=== PATIENT | male | born 1990 | race Caucasian/White ===

== ENCOUNTER 2025-04-20 16:38 | Emergency (ER) | payer SELFPAY ==
--- NOTE | ~2025-04-20 | XR_ITS ---
CLINICAL HISTORY: pain 2 view chest x-ray Comparison: None provided Findings: Trace bilateral pleural fluid. Within the range of physiologic. No consolidation or or pneumothorax. Heart size is normal. No acute fracture. IMPRESSION: 1. No acute findings. This document has been electronically signed by: Trixie Almeida MD on 04/20/2025 21:35:46
--- NOTE | 2025-04-20 16:41 | ECG_ITS ---
Test Reason : CP Blood Pressure : */* mmHG Vent. Rate : 71 BPM Atrial Rate : 71 BPM P-R Int : 138 ms QRS Dur : 92 ms QT Int : 352 ms P-R-T Axes : 73 50 58 degrees QTcB Int : 382 ms Normal sinus rhythm with sinus arrhythmia Normal ECG No previous ECGs available Referred By: Generic ED Physician Electronically Signed By: TRUE RIVAS MD
[2025-04-20 16:48] VITALS: BP 127/80; PULSE 97; RESP 18; TEMP 37; O2SAT 97; BMI 18.8
--- NOTE | 2025-04-20 16:50 | ED.GENADULT ---
HPI - General Adult General Chief complaint: General Medical Stated complaint: CP; difficulty breathing, Throat pain Time Seen by Provider: 04/20/25 20:14 Source: patient Limitations: no limitations History of Present Illness ED Provider: Laura Dee PA-C HPI narrative: 35-year-old male presents with epigastric discomfort x1 week. Patient also complains of ongoing tooth pain of unclear duration. Patient complains of intermittent dental pain of 1 of the molars on the lower right side. Patient states he fracture of the tooth quite some time ago, he will have periodic pain. Patient has a an appointment with the his dentist in 2 days, he started to develop discomfort within the past week. In regard to the upper abdominal discomfort, pain over epigastric region with radiation to central chest and throat, patient states when he has episodes of eructation, he has a ?sour taste in his mouth?. Denies recent cough or cold symptoms no fevers. No nausea vomiting, or diarrhea. Related Data Previous Rx's ?Medication ?Instructions ?Recorded amoxicillin 500 mg capsule 500 mg PO Q12H #19 caps 04/20/25 sucralfate 100 mg/mL oral 10 ml PO QID PRN indigestion #400 04/20/25 suspension (Carafate) mL Allergies Allergy/AdvReac Type Severity Reaction Status Date / Time No Known Allergies Allergy Verified 04/20/25 16:50 Review of Systems Review of Systems: Yes all other systems are reviewed and are negative Constitutional: Constitutional: Denies fatigue and Denies fever(s) Cardiovascular: Cardiovascular: Reports chest pain and Denies dyspnea Respiratory: Respiratory: Denies dyspnea Gastrointestinal: Gastrointestinal: Reports abdominal pain, Denies constipation, Reports dyspepsia, Reports heartburn, Denies diarrhea, Denies nausea and Denies vomiting Endocrine: Endocrine: Denies fatigue PMFSH Past Medical History Attestation statement: The following information was validated with the patient. Social History Social History Advance Directives: No Advance Directives Information Provided: No Do you have a plan to hurt others: No Plan Physical Exam ED Vital Signs: Vital Signs - 24 hr 04/20/25 16:48 Temperature 98.6 F Pulse Rate 97 Respiratory Rate 18 Blood Pressure 127/80 Pulse Oximetry 97 Oxygen Delivery Method Room Air BMI result Body Mass Index 18.8 Const Other: Alert, well-appearing Orientation/consciousness: patient oriented x3 HENMT Other: The wisdom tooth on the right lower side is broken, no associated erythema over the gum tooth margin, no purulence from the site, no trismus no drooling no swelling inferior to the jawline no sublingual fluctuance Resp Effort & Inspection: normal respiratory effort Cardio Other: Normal peripheral perfusion GI Other: Soft nontender no guarding no distention Skin Other: Warm dry no rash Neuro General: patient oriented x3, gait normal, no focal motor deficits and CN's II-XI intact bilaterally Psych Other: Cooperative Course Course Course Narrative: Rapid medical examination performed in triage by Cris Stahl PA-C. Patient is a 35 year old assigned male at presenting to the emergency department with abdominal pain and abuse of acetaminophen. Detailed physical exam and review of systems are deferred to the speech and language clinician. Labs ordered. Patient placed back in the waiting room pending room availability and results. Medications Administered Discontinued Medications Generic Name Dose Route Start Last Admin Trade Name Alanq PRN Reason Stop Dose Admin Acetaminophen 975 mg 04/20/25 20:53 04/20/25 21:13 Acetaminophen 325 Mg Tablet PO 04/20/25 20:54 975 mg ONCE ONE Administration Ketorolac Tromethamine 15 mg 04/20/25 20:53 04/20/25 21:13 Ketorolac Tromethamine 15 Mg/Ml Vial IM 04/20/25 20:54 15 mg ONCE ONE Administration Sucralfate 1 gm 04/20/25 20:53 04/20/25 21:13 Sucralfate Oral Suspension 1 Gm/10 Ml Oral.Susp PO 04/20/25 20:54 1 gm ONCE ONE Administration Medical Decision Making Medical Decision Making [facility] Narrative: 35-year-old male presents with epigastric discomfort x1 week. Patient also complains of ongoing tooth pain of unclear duration. Patient complains of intermittent dental pain of 1 of the molars on the lower right side. Patient states he fracture of the tooth quite some time ago, he will have periodic pain. Patient has a an appointment with the his dentist in 2 days, he started to develop discomfort within the past week. In regard to the upper abdominal discomfort, pain over epigastric region with radiation to central chest and throat, patient states when he has episodes of eructation, he has a ?sour taste in his mouth?. Denies recent cough or cold symptoms no fevers. No nausea vomiting, or diarrhea. Problem: Ongoing dental fracture History: Per patient I have considered the following differential diagnoses: Biliary colic, cholecystitis, gastritis, perforated peptic ulcer, pancreatitis, poorly controlled GERD, dental infection , ACS Plan: In regard to the dental infection, he likely is developing a deeper infection, we will place him on amoxicillin, it is ideal that he has an appointment with the his dentist in 2 days. No evidence of Marlon angina on exam. No indication for imaging at this time. In regard to his chest and upper abdominal discomfort, his symptoms are likely secondary to poorly controlled acid reflux. There was no guarding on exam, absence of peritonitic signs to suggest perforated peptic ulcer, the patient is also not vomiting coffee-ground emesis. Given distribution of discomfort I also considered underlying biliary versus pancreatic etiology as cause for symptoms, however his labs were overall unremarkable including LFTs and lipase. We will be sending with Carafate and home instructions. Atypical presentation for ACS was considered, however the patient has no no risk factors for coronary artery disease, his heart score is 0. I have independently reviewed the following tests: Labs: No leukocytosis, not anemic, no electrolyte abnormality, troponin negative EKG: Normal sinus rhythm, rate of 71, no ischemic changes, sinus arrhythmia noted, QTC 382 Chest x-ray:Findings: Trace bilateral pleural fluid. Within the range of physiologic. No consolidation or or pneumothorax. Heart size is normal. No acute fracture. IMPRESSION: 1. No acute findings. Differential Diagnosis Differential Diagnoses: The differential diagnosis associated with the presentation includes See medical decision-making Admission/Observation Consideration of admission/observation: Escalation of care including admission/observation considered Not applicable Lab Data MDM Lab Attestation statement: I reviewed the patient's lab results. 04/20/25 16:55 04/20/25 16:55 Labs: Lab Results 04/20/25 Range/Units 16:55 WBC 11.4 H (4.8-10.8) X10*3/uL RBC 5.89 H (4.60-5.80) X10*6/uL Hgb 15.3 (14.0-18.0) g/dl Hct 47.2 (42.0-52.0) % MCV 80.1 (80.0-98.0) fL MCH 26.0 L (27.0-33.0) pg MCHC 32.4 (31.0-36.0) g/dl RDW 16.4 H (11.0-16.0) % Plt Count 268 (160-400) X10*3/uL MPV 9.7 (9.4-12.4) fL Immature Gran % (Auto) 0.7 H (0.0-0.4) % Neut % (Auto) 66.3 (45-73) % Lymph % (Auto) 21.5 (20-40) % Bureau % (Auto) 8.2 (2-11) % Eos % (Auto) 2.7 (0-4) % Baso % (Auto) 0.6 (0-2) % Lymph # (Auto) 2.5 (1.2-4.9) X10*3/uL Bureau # (Auto) 0.9 (0.1-1.2) X10*3/uL Eos # (Auto) 0.3 (0.0-0.4) X10*3/uL Baso # (Auto) 0.1 (0.0-0.2) X10*3/uL Abs Immat Gran (auto) 0.08 H (0.00-0.03) X10*3/uL Absolute Neuts (auto) 7.6 (2.0-8.3) x10*3/uL Absolute Nucleated RBC 0.000 (0.0-0.012) X10*3/uL Nucleated RBC % (auto) 0.0 (0.0-0.2) /100WBC Sodium 142 (135-145) mmol/L Potassium 3.9 (3.3-5.1) mmol/L Chloride 106 (96-108) mmol/L Carbon Dioxide 26 (22-29) mmol/L Anion Gap 14 (12-20) BUN 15 (9-16) mg/dL Creatinine 0.90 (0.5-1.4) mg/dL Estim Creat Clear Calc 91.8 Estimated GFR > 60 Random Glucose 100 (60-115) mg/dL Calcium 9.2 (8.4-10.2) mg/dL Total Bilirubin 0.4 (0.0-1.0) mg/dL AST 19 (5-37) U/L ALT 17 (0-40) U/L Alkaline Phosphatase 83 (39-117) U/L Troponin I High Sens < 2.7 (<3.5-35.0) ng/L Total Protein 7.3 (6.5-8.0) g/dL Albumin 4.8 (3.5-5.0) g/dL Acetaminophen < 3 (<30) mcg/mL Independent Interpretation I performed an independent interpretation of an: EKG Radiology Impression Discussion of test interpretation with radiology: I have reviewed the radiologist's reading. Discharge Plan Discharge Clinical Impression: Continuous epigastric pain, Pain, dental, GERD (gastroesophageal reflux disease) Patient Disposition: Home, Self-Care Instructions: Diet for Stomach Ulcers and Gastritis (ED), GERD (Gastroesophageal Reflux Disease) (ED), Toothache (ED), Epigastric Pain (ED) Additional Instructions: All of your screening labs including a cardiac enzymes were normal. The chest x-ray is clear, there were no concerning changes on your EKG. I do believe your upper abdominal discomfort and central chest discomfort is secondary to poorly controlled acid reflux. See home care instructions, I have also included an appropriate diet for you to consume while managing your acute reflux symptoms. Use the Carafate as needed for upper abdominal discomfort. Take the amoxicillin as directed. Some common food triggers to avoid would be anything spicy, acidic, fatty or greasy, anything carbonated, alcohol or caffeine. You should also not eat 3 hours before bed. Eating smaller meals throughout the day can help curb symptoms. Follow up with your primary care provider as needed. Also keep your pending appointment with your dentist. Prescriptions: New amoxicillin 500 mg capsule 500 mg PO Q12H Qty: 19 0RF sucralfate [Carafate] 100 mg/mL suspension 10 ml PO QID PRN (Reason: indigestion) Qty: 400 0RF Rx Instructions: swish in mouth and swallow; use after food/drink Stand Alone Forms: Work/School Release Print Language: Argentine
[2025-04-20 17:00] LABS: MANUAL DIFF FLAG NO
[2025-04-20 17:02] LABS: Hematocrit 47.2 % (42.0-52.0); Hemoglobin 15.3 g/dl (14.0-18.0); Imm Gran Abs Auto 0.08 X10*3/uL (0.00-0.03); Imm Gran Pct Auto 0.7 % (0.0-0.4); Lymphocytes Absolute Auto 2.5 X10*3/uL (1.2-4.9); Mean Corpuscular HGB Conc 32.4 g/dl (31.0-36.0); Mean Corpuscular Hemoglobin 26.0 pg (27.0-33.0); Mean Corpuscular Volume 80.1 fL (80.0-98.0); NRBC Abs Auto 0.000 X10*3/uL (0.0-0.012); NRBC Pct Auto 0.0 /100WBC (0.0-0.2); Platelet Count 268 X10*3/uL (160-400); Red Blood Count 5.89 X10*6/uL (4.60-5.80); White Blood Count 11.4 X10*3/uL (4.8-10.8)
[2025-04-20 17:18] LABS: Acetaminophen LAB < 3 mcg/mL (<30); Alanine Aminotransferase 17 U/L (0-40); Albumin Level 4.8 g/dL (3.5-5.0); Alkaline Phosphatase 83 U/L (39-117); Anion Gap 14 (12-20); Aspartate Amino Transferase 19 U/L (5-37); Blood Urea Nitrogen 15 mg/dL (9-16); Calcium 9.2 mg/dL (8.4-10.2); Carbon Dioxide 26 mmol/L (22-29); Chloride 106 mmol/L (96-108); Creatinine Clr Calc Pharmacy 91.8; Estimated Glomerular Filt Rate > 60; Potassium 3.9 mmol/L (3.3-5.1); Sodium 142 mmol/L (135-145); Total Protein 7.3 g/dL (6.5-8.0)
[2025-04-20 20:56] LABS: Troponin-I High Sensitivity < 2.7 ng/L (<3.5-35.0)
[2025-04-20] MEDS: Sucralfate Oral Suspension 1 GM/10 ML ORAL.SUSP PO (21:13)
[2025-04-20 21:45] VITALS: BP 119/79; PULSE 78; RESP 16; TEMP 36.7; O2SAT 98
[2025-04-20 21:46] VITALS: BP 119/79; PULSE 78; RESP 16; TEMP 36.7; O2SAT 98
== END 2025-04-20 21:47 | disposition home or self-care (01) ==
PROVIDERS: Physician Assistant Medical; Emergency Provider Emergency Medicine
DX: R10.13 Epigastric pain (principal); K08.89 Other specified disorders of teeth and supporting structures; R10.10 Upper abdominal pain, unspecified; K21.9 Gastro-esophageal reflux disease without esophagitis
CPT/HCPCS: 36415; 71046; 80053; 80143; 84484; 85025; 93005; 96372; 99284; J1885

== ENCOUNTER → 2025-04-20 16:41 | Outpatient (BNV) | payer SELFPAY | PROVIDERS: Emergency Provider Emergency Medicine; Visit Provider Internal Medicine Cardiovascular Disease | DX: R07.9 Chest pain, unspecified (principal) | CPT/HCPCS: 93010 ==

== ENCOUNTER → 2025-04-20 20:31 | Outpatient (BNV) | payer SELFPAY | PROVIDERS: Emergency Provider Emergency Medicine; Visit Provider Radiology Diagnostic Radiology | DX: R07.9 Chest pain, unspecified (principal) | CPT/HCPCS: 71046 ==